=== PATIENT | female | born 1960 | race Caucasian/White ===

== ENCOUNTER 2017-04-28 06:51 | Day surgery (SDC) | payer OTHER ==
[2017-04-20 08:56] VITALS: BMI 28.3
[2017-04-28] MEDS ORDERED: EPINEPHrine 1:1000 Nasal Sol(30mL) ONE (07:20)
[2017-04-28] MEDS ORDERED: ceFAZolin IV 1 gm in Dextrose 1 GM/50 ML BAG IVPB ONE (07:20)
[2017-04-28] MEDS ORDERED: Lidocaine 1% w Epi 1:100,000 Inj ONE (07:20)
[2017-04-28] MEDS ORDERED: Acetaminophen-Codeine 300/30 mg Tab PO PRN (07:30)
[2017-04-28] MEDS ORDERED: Dextrose 5%/0.45% NS 1,000 ML IV SCH (07:30)
[2017-04-28] MEDS ORDERED: Lactated Ringer's 1,000 ML IV ONE (09:00)
[2017-04-28] MEDS: HYDROmorphone 0.5 mg/0.5 ml ISec IVP PRN ×2 (10:55→11:27)
[2017-04-28 13:20] VITALS: BP 126/71; PULSE 63; RESP 18; TEMP 97.9; O2SAT 96
--- NOTE | 2017-04-29 11:40 | OP ---
PROCEDURE DATE: PRE AND POSTOPERATIVE DIAGNOSES: Deviated septum and enlarged turbinates. PROCEDURE: Septoplasty and endoscopic bilateral inferior turbinate reduction. DESCRIPTION OF PROCEDURE: The patient was brought into the room, placed in supine position. Anesthesia was initiated through an ET tube. The patient was draped in the usual manner. Adrenaline-soaked pledgets were inserted into the nasal cavity remained there for 5 minutes and then removed. The septum was injected with lidocaine with epinephrine on both sides. A Felipe's incision was made on the left and a mucoperichondrial flap was raised. A vertical incision was made in the cartilage leaving a 1.5-cm anterior and superior strut and the mucoperichondrial flap was raised on the other side. Deviated portion of the cartilage and bone were removed using forceps and chisel and the 2 flaps were sutured together using a quilting suture, which is also used to close the Graton's incision. Next, a 0-degree scope was inserted into the nasal cavity. The inferior turbinates were noted to enlarged on both sides. They were reduced using scissors first on the left and then on the right going from an inferior to superior and anterior to posterior direction. Bleeding was controlled using suction cautery. Splints were placed. The patient was taken off anesthesia and taken to recovery room in a stable manner. Shai Dubois MD MTDDaly
== END 2017-04-28 13:15 | disposition home or self-care (01) ==
LOC: C.SDS 06:51
PROVIDERS: ATTEND Otolaryngology
DX: J34.2 Deviated nasal septum (principal); J34.3 Hypertrophy of nasal turbinates
CPT/HCPCS: 30520; 30802; 88304; J0690; J1170; J2405; J7030; J7120

== ENCOUNTER 2017-07-02 07:30 | Day surgery (SDC) | payer OTHER ==
[2017-07-02 08:06] VITALS: BMI 27.3
[2017-07-02] MEDS ORDERED: Lactated Ringer's 1,000 ML IV ONE (09:00)
--- NOTE | 2017-07-02 09:02 | CP.SDSHP ---
Same Day Surgery H & P - History Proposed Procedure: EGD Pre-Op Diagnosis: SEE NOTES - Previous Medical/Surgical History Endocrine/Metabolic: Other Neuro: Backaches Misc: Other Pain: 4.Moderate Pain - Allergies Allergies: Allergies No Known Allergies Allergy (Verified 04/20/17 08:56) - Physical Exam General Appearance: N Vital Signs: Vital Signs 07/02/17 08:07 Temperature 98 F Pulse Rate 67 Respiratory 18 Rate Blood Pressure 105/59 L O2 Sat by Pulse 97 Oximetry Mental Status: Alert & Oriented x3 Neuro: WNL Heart: WNL Lungs: WNL GI: Other - {Optional Preform as Required} Breast: WNL Abdomen: Other Rectal: Other Integument: WNL : WNL Ortho: Other ENT: WNL - Impression Pt. Evaluated Today:Candidate for Anesthesia & Procedure: Yes - Date & Time Time: 09:02 Short Stay Discharge - Short Stay Discharge Admitting Diagnosis/Reason for Visit: DYSPEPSIA Disposition: HOME/ ROUTINE
[2017-07-02] MEDS ORDERED: Propofol 10 mg/ml Inj (20 ML) ONE (09:04)
[2017-07-02] MEDS ORDERED: Belladonna-Phenobarbital PO ONE (09:30)
[2017-07-02 10:22] VITALS: PULSE 56; TEMP 98.4
[2017-07-02 10:26] VITALS: BP 104/61; RESP 20; O2SAT 97
== END 2017-07-02 10:10 | disposition home or self-care (01) ==
LOC: C.ENDO 07:30
PROVIDERS: ATTEND Specialist
DX: K29.00 Acute gastritis without bleeding (principal); K29.50 Unspecified chronic gastritis without bleeding; B96.81 Helicobacter pylori [H. pylori] as the cause of diseases classified elsewhere; K31.89 Other diseases of stomach and duodenum; K44.9 Diaphragmatic hernia without obstruction or gangrene; E03.9 Hypothyroidism, unspecified; M81.0 Age-related osteoporosis without current pathological fracture; Z79.899 Other long term (current) drug therapy; Z98.890 Other specified postprocedural states
CPT/HCPCS: 43239; 88305; J2001; J2704; J7120

== ENCOUNTER 2017-07-16 06:01 | Day surgery (SDC) | payer OTHER ==
[2017-07-16] MEDS ORDERED: Propofol 10 mg/ml Inj (20 ML) ONE (07:58)
[2017-07-16] MEDS ORDERED: Lactated Ringer's 1,000 ML IV ONE ×2 (08:00)
--- NOTE | 2017-07-16 08:00 | CP.SDSHP ---
Same Day Surgery H & P - History Proposed Procedure: COLONSCOPY Pre-Op Diagnosis: SEE NOTES - Previous Medical/Surgical History Neuro: Backaches Misc: Other Pain: 4.Moderate Pain - Allergies Allergies: Allergies No Known Allergies Allergy (Verified 04/20/17 08:56) - Physical Exam General Appearance: N Vital Signs: Vital Signs 07/16/17 06:47 Temperature 97.3 F L Pulse Rate 80 Respiratory 16 Rate Blood Pressure 118/61 O2 Sat by Pulse 99 Oximetry Mental Status: Alert & Oriented x3 Neuro: WNL Heart: WNL Lungs: WNL GI: Other - {Optional Preform as Required} Breast: WNL Abdomen: Other Rectal: Other Integument: WNL : WNL Ortho: Other ENT: WNL - Impression Pt. Evaluated Today:Candidate for Anesthesia & Procedure: Yes - Date & Time Time: 08:00 Short Stay Discharge - Short Stay Discharge Admitting Diagnosis/Reason for Visit: RECTAL BLEEDING Disposition: HOME/ ROUTINE
[2017-07-16 08:28] VITALS: TEMP 97; O2SAT 100
[2017-07-16] MEDS ORDERED: Belladonna-Phenobarbital PO ONE (08:40)
[2017-07-16 09:34] VITALS: BP 108/67; PULSE 57; RESP 13
== END 2017-07-16 09:15 | disposition home or self-care (01) ==
LOC: C.ENDO 06:01
PROVIDERS: ATTEND Specialist
DX: K52.9 Noninfective gastroenteritis and colitis, unspecified (principal); K60.2 Anal fissure, unspecified; K58.9 Irritable bowel syndrome, unspecified; K62.5 Hemorrhage of anus and rectum; R10.84 Generalized abdominal pain
CPT/HCPCS: 45380; 88305; J2704; J7120

== ENCOUNTER 2017-11-18 12:03 | Emergency (ER) | payer MEDICAID, OTHER ==
[2017-11-18 12:04] VITALS: BMI 27.3
[2017-11-18 12:20] VITALS: BP 101/66; PULSE 62; RESP 18; TEMP 98.4; O2SAT 95
--- NOTE | 2017-11-18 13:22 | C.PDOC ---
History Of Present Illness Cara Mari is a 57 year old female, with a past medical history of arthritis, who presents to the emergency department complaining of right thumb pain onset since this morning. Patient states the pain has improved. She receives weekly injections for her systemic arthritis. She denies any other medical complaints. PMD: None provided. Time Seen by Provider: 11/18/17 12:52 Chief Complaint (Nursing): Upper Extremity Problem/Injury History Per: Patient History/Exam Limitations: no limitations Onset/Duration Of Symptoms: Days (x1) Current Symptoms Are (Timing): Better Quality: "Pain" Severity: Mild Past Medical History Reviewed: Historical Data, Nursing Documentation, Vital Signs Vital Signs: Last Vital Signs Temp 98.4 F 11/18/17 12:16 Pulse 62 11/18/17 12:16 Resp 18 11/18/17 12:16 BP 101/66 11/18/17 12:16 Pulse Ox 95 11/18/17 13:21 - Medical History PMH: Arthritis, Hypercholesterolemia (DIET CONTROLLED), Osteoporosis Denies: Chronic Kidney Disease Surgical History: No Surg Hx Family History: States: Unknown Family Hx - Social History Hx Tobacco Use: No Hx Alcohol Use: No Hx Substance Use: No Review Of Systems Musculoskeletal: Positive for: Hand Pain (right thumb pain) Physical Exam - Physical Exam Appears: No Acute Distress Skin: Normal Color, Warm, Dry Head: Atraumatic, Normacephalic Eye(s): bilateral: Normal Inspection, PERRL, EOMI Neck: Normal ROM Extremity: Normal ROM (right thumb), Tenderness (mild to moderate to right thumb ), No Deformity, No Swelling (Right thumb no joint or soft tissue swellling. ) Neurological/Psych: Oriented x3 ED Course And Treatment O2 Sat by Pulse Oximetry: 95 (RA) Pulse Ox Interpretation: Normal - Other Rad R thumb X-Ray: Interpreted by Me (neg) Progress Note: ice pack, motrin Reevaluation Time: 13:20 Reassessment Condition: Improved Medical Decision Making Medical Decision Making: Initial Impression: Thumb sprain vs systemic arthritis Initial Plan: --Motrin tab 600 mg PO --Hand right thumb [RAD] --Reevaluation thumb sprain vs systemic arthritis- normal joint exam and normal R thumb x-rays 12:29 Hand X-Ray IMPRESSION: Mild degenerative changes. No acute displaced fracture or dislocation identified. Disposition Doctor Will See Patient In The: Office Counseled Patient/Family Regarding: Studies Performed, Diagnosis - Disposition Referrals: [facility] [Outside] Disposition: HOME/ ROUTINE Disposition Time: 13:21 Condition: GOOD Additional Instructions: x-rays of R thumb are NORMAL Continue Motrin/Advil/Ibuprofen 400-600 mg every 6 hours as needed continue ice packs 1/2 hour per hour, nothing hot. Follow-up with your Behavioral Services Tech. Follow-up w our [facility] (free) as needed. Instructions: Finger Sprain (ED), Arthritis (ED) Forms: [employer] ([place]) - Clinical Impression Clinical Impression: Pain of right thumb - Scribe Statement Micah Juares Provider Attestation: All medical record entries made by the Tatiannaibbarbara were at my direction and personally dictated by me. I have reviewed the chart and agree that the record accurately reflects my personal performance of the history, physical exam, medical decision making, and the department course for this patient. I have also personally directed, reviewed, and agree with the discharge instructions and disposition.
--- NOTE | 2017-11-18 13:32 | RAD ---
PROCEDURE: Right Thumb radiographs. HISTORY: h/o arthritis, no trauma COMPARISON: None available. TECHNIQUE: AP radiograph of the right hand, as well as spot oblique and lateral images of thumb were obtained. FINDINGS: RIGHT THUMB: Unremarkable right 1st digit without acute displaced fracture. Remainder of the right hand (as seen on the AP view) grossly unremarkable. Mild degenerative changes. JOINTS: No dislocation. SOFT TISSUES: Unremarkable. No evidence radiopaque foreign body. OTHER FINDINGS: None. IMPRESSION: Mild degenerative changes. No acute displaced fracture or dislocation identified.
== END 2017-11-18 13:29 | disposition home or self-care (01) ==
LOC: C.ER 12:03
DX: M79.644 Pain in right finger(s) (principal); E78.00 Pure hypercholesterolemia, unspecified; M81.0 Age-related osteoporosis without current pathological fracture